=== PATIENT | male | born 1955 | race African-American/Black ===

== ENCOUNTER 2020-03-04 09:57 | Emergency (ER) | payer OTHER ==
[~2020-03-04] VITALS: Ht 182.9 cm; Wt 81.6 kg
[2020-03-04 11:00] VITALS: BP 162/93
[2020-03-04 13:09] LABS: APPEARANCE,URINE SLIGHTLY CLOUDY; BILIRUBIN, URINE NEGATIVE (NEGATIVE); GLUCOSE, URINE (UA) NEGATIVE (NEGATIVE); KETONES,URINE 3+ (NEGATIVE); LEUKOCYTE ESTERASE ,URINE 1+ (NEGATIVE); NITRITE,URINE NEGATIVE (NEGATIVE); PH,URINE 6.5 (4.5-8.0); PROTEIN,URINE 4+ (NEGATIVE); UROBILINOGEN,URINE 1 MG/DL (0.0-1.0)
[2020-03-04 13:19] LABS: BASOPHILS % (AUTO) 1.2 % (0.0-2.0); EOSINOPHILS % (AUTO) 0.2 % (0.0-3.0); HEMATOCRIT 45.5 % (42.0-52.0); HEMOGLOBIN 14.6 G/DL (14.2-18.0); LYMPHOCYTES % (AUTO) 10.4 % (20.0-45.0); MEAN CORPUSCULAR VOLUME 94 FL (80-99); MONOCYTES % (AUTO) 3.8 % (1.0-10.0); NEUTROPHILS % (AUTO) 84.4 % (45.0-75.0); PLATELET COUNT 159 K/UL (150-450); RED BLOOD COUNT 4.83 M/UL (4.70-6.10); RED CELL DISTRIBUTION WIDTH 12.1 % (11.6-14.8); WHITE BLOOD COUNT 6.3 K/UL (4.8-10.8)
[2020-03-04 13:32] LABS: COLOR,URINE YELLOW
[2020-03-04 13:42] LABS: INR 1.1 (0.9-1.1)
[2020-03-04 14:03] LABS: ALKALINE PHOSPHATASE 40 U/L (46-116); ANION GAP 10 mmol/L (5-15); ASPARTATE AMINO TRANSFERASE 89 U/L (15-37); CARBON DIOXIDE 25 MMOL/L (21-32); CHLORIDE 93 MMOL/L (98-107); CKMB 2.4 NG/ML (0.0-3.6); CREATINE KINASE 997 U/L (26-308); FERRITIN 1541 NG/ML (8-388); LACTATE DEHYDROGENASE 985 U/L (81-234); POTASSIUM 5.4 MMOL/L (3.5-5.1); SODIUM 128 MMOL/L (136-145)
[2020-03-04 14:24] LABS: ALANINE AMINOTRANSFERASE 29 U/L (12-78); BLOOD UREA NITROGEN 14 mg/dL (7-18); CALCIUM 8.9 MG/DL (8.5-10.1)
--- NOTE | 2020-03-04 16:14 | Emergency Room Report ---
History of Present Illness General Chief Complaint: Upper Respiratory Illness Source: Patient Present Illness HPI 64-year-old male past medical history here complaining 10 days of cough and shortness of breath. Reports that he got tested for COVID-19 10 days ago and tested negative. Patient statting 92% upon arrival however after being placed in the room without the aid of any breathing treatment or device he was statting 97%. Denies any diarrhea, congestion at this time. Appears to be afebrile. Has not taken medication for symptom relief. His main concern is cough especially at nighttime. Denies tobacco smoking drug use. 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 COVID-19 Screening: Negative COVID-19 COVID-19 Testing Source: 10 days ago Patient History Past Medical History: see triage record Past Surgical History: none Pertinent Family History: none Immunizations: UTD Reviewed Nursing Documentation: PMH: Agreed; PSxH: Agreed Nursing Documentation-PMH Past Medical History: No Stated History Review of Systems All Other Systems: negative except mentioned in HPI Physical Exam Vital Signs Date Time Temp Pulse Resp B/P (MAP) Pulse Ox O2 Delivery O2 Flow Rate FiO2 03/04/20 10:09 99.0 107 15 162/93 (116) 92 Room Air Sp02 EP Interpretation: reviewed, abnormal - O2 sat 92% General Appearance: no apparent distress, alert, GCS 15, non-toxic Head: normocephalic, atraumatic Eyes: bilateral eye normal inspection, bilateral eye PERRL ENT: no angioedema Neck: full range of motion, supple Respiratory: no respiratory distress, no retraction, no accessory muscle use Cardiovascular #1: regular rate, rhythm, no edema Gastrointestinal: non tender Musculoskeletal: back normal, no calf tenderness Neurologic: alert, motor strength/tone normal, oriented x3, sensory intact, responsive, speech normal Psychiatric: judgement/insight normal, memory normal, mood/affect normal, no suicidal/homicidal ideation Skin: no rash Lymphatic: no adenopathy Medical Decision Making PA Attestation All diagnosis and treatment plans were discussed and reviewed by my supervising physician Dr. Kelly Diagnostic Impression: Primary Impression: Pneumonia Additional Impression: Dehydration ER Course 64-year-old male past medical history here complaining 10 days of cough and marlo rtness of breath. Reports that he got tested for COVID-19 10 days ago and tested negative. Patient statting 92% upon arrival however after being placed in the room without the aid of any breathing treatment or device he was statting 97%. Denies any diarrhea, congestion at this time. Appears to be afebrile. Has not taken medication for symptom relief. His main concern is cough especially at nighttime. Denies tobacco smoking drug use. Ddx considered but are not limited to: bronchitis, PNA, URI viral, bacterial bronchitis, COVID-19 Vital signs: are WNL, pt. is afebrile H&PE are most consistent with: Suspected COVID-19 pneumonia, dehydration ORDERS: ER Covid order set, azithromycin, prednisone, albuterol, Phenergan DM ED INTERVENTIONS: NS bolus, dexamethasone DISCHARGE: At this time pt. is stable for d/c to home. Will provide printed patient care instructions, and any necessary prescriptions. Care plan and follow up instructions have been discussed with the patient prior to discharge. Patient to follow primary care provider, take medication as directed, oral hydration, if worsening symptoms return to the emergency room EKG Diagnostic Results Rate: normal Rhythm: NSR ST Segments: no acute changes Other Impression No acute ST changes ASA given to the pt in ED: No Chest X-Ray Diagnostic Results Chest X-Ray Diagnostic Results : Chest X-Ray Ordered: Yes # of Views/Limited/Complete: 1 View Indication: Shortness of Breath EP Interpretation: Yes PA Xray: Interpretation reviewed, by supervising MD, and agrees with findings. Interpretation: no effusion, no pneumothorax, other - Bilateral infiltrates Impression: Other - Pneumonia PA Scribe Text Comparison: none Findings: There are bilateral patchy and streaky opacities mostly in the mid and lower lungs, with a peribronchovascular distribution. The heart size is upper limits normal. The aorta is tortuous and ectatic. Impression: Bilateral infiltrates consistent with multifocal pneumonia, likely viral Last Vital Signs Date Time Temp Pulse Resp B/P (MAP) Pulse Ox O2 Delivery O2 Flow Rate FiO2 03/04/20 11:00 99.0 15 162/93 92 Room Air 03/04/20 11:00 107 Disposition: HOME, SELF-CARE Condition: Stable Scripts Albuterol Sulfate (VENTOLIN HFA) 18 Gm Hfa.aer.ad 2 PUFFS INH EVERY 6 HOURS, #18 GM 0 Refills Prov: Jeffrey Jo 03/04/20 D-Methorphan Hb/Prometh Hcl* (PROMETHAZINE-DM SYRUP*) 118 Ml Syrup 5 ML ORAL Q6H PRN for For Cough, #120 ML 0 Refills Prov: Jeffrey Jo 03/04/20 Prednisone* (PREDNISONE*) 20 Mg Tablet 40 MG ORAL DAILY for 5 Days, #10 TAB Prov: Jeffrey Jo 03/04/20 Azithromycin* (ZITHROMAX*) 250 Mg Tablet 250 MG ORAL DAILY, #6 TAB 0 Refills Take two tables once daily for 1 day, then one tablet once daily for 4 days. Prov: Jeffrey Jo 03/04/20 Referrals: [facility],REFERRING (PCP) Patient Instructions: Dehydration, Adult, Upper Respiratory Infection, Adult Additional Instructions: Take medication as directed, follow with primary care provider, if worsening symptoms return to the emergency room Jeffrey Jo Mar 04, 2020 16:14
[2020-03-04] MEDS ORDERED: PREDNISONE20 MG ORAL (16:15)
[2020-03-04] MEDS ORDERED: VENTOLIN HFA18 GM INH (16:15)
[2020-03-04] MEDS ORDERED: ZITHROMAX250 MG ORAL (16:15)
[2020-03-04] MEDS ORDERED: PROMETHAZINE-D118 ML ORAL (16:15)
--- NOTE | 2020-03-04 16:21 | Diagnostic Imaging Report ---
Indication: Shortness of breath Technique: One view of the chest Comparison: none Findings: There are bilateral patchy and streaky opacities mostly in the mid and lower lungs, with a peribronchovascular distribution. The heart size is upper limits normal. The aorta is tortuous and ectatic. Impression: Bilateral infiltrates consistent with multifocal pneumonia, likely viral
[2020-03-04 16:43] VITALS: BP 158/91
--- NOTE | 2020-03-06 12:58 | Cardiology Report ---
APPROVED REPORT EKG Measurement Heart [id number] <Conclusion> Sinus tachycardia Otherwise normal ECG
== END 2020-03-04 16:43 | disposition home or self-care (01) ==
LOC: EMR 11:45
DX: J18.9 Pneumonia, unspecified organism (principal); E86.0 Dehydration
CPT/HCPCS: 36415; 71045; 80053; 81003; 82550; 82553; 82728; 83605; 83615; 83690; 83880; 84484; 85025; 85379; 85610; 85730; 87040; 93005; 96361; 96374; J1100; J7030; U0002; Z7502; 86140; 99284